=== PATIENT | female | born 1980 | race Caucasian/White ===

== ENCOUNTER 2017-07-25 03:08 | Emergency (ER) | payer MEDICAID ==
[~2017-07-25] VITALS: Ht 157.5 cm; Wt 43.1 kg
--- NOTE | 2017-07-25 03:40 | NUR ---
Dr. Mccullough at bedside for MSE.
[2017-07-25] MEDS ORDERED: ALBUTEROL SULFATE 2.5 MG/3 ML NEBU NEB ONE (03:45)
[2017-07-25] MEDS ORDERED: BENZONATATE 100 MG CAPSULE PO ONE (03:45)
[2017-07-25] MEDS ORDERED: GUAIFENESIN/CODEINE 5 ML LIQUID UDC PO ONE (03:45)
[2017-07-25] MEDS ORDERED: GUAIFENESIN/CODEINE 5 ML LIQUID UDC ONE (03:49)
[2017-07-25] MEDS ORDERED: BENZONATATE 100 MG CAPSULE ONE (03:50)
[2017-07-25] MEDS ORDERED: ALBUTEROL SULFATE 2.5 MG/3 ML NEBU ONE (03:51)
[2017-07-25] MEDS ORDERED: KETOROLAC TROMETHAMINE 30 MG INJ ONE (04:24)
--- NOTE | 2017-07-25 04:28 | NUR ---
Patient discharged to home in stable conditon. Written and verbal after care instructions given. Patient verbalizes understanding of instructions. Patient left ER and walks in steady gait. All belongings with pt. Accompnied by friend. VSS. No distress noted.
[2017-07-25 04:29] VITALS: BP 139/87
[2017-07-25] MEDS ORDERED: KETOROLAC TROMETHAMINE 30 MG INJ IM ONE (04:30)
== END 2017-07-25 04:28 | disposition home or self-care (01) ==
LOC: ER 03:13
DX: J20.9 Acute bronchitis, unspecified (principal); F17.200 Nicotine dependence, unspecified, uncomplicated
CPT/HCPCS: A4663; J1885

== ENCOUNTER 2017-09-20 00:56 | Emergency (ER) | payer MEDICAID ==
[~2017-09-20] VITALS: Ht 157.5 cm; Wt 47.6 kg
--- NOTE | 2017-09-20 02:21 | NUR ---
DR. KAYE REZA MD AT BEDSIDE FOR MSE.
[2017-09-20] MEDS ORDERED: predniSONE 20 MG TABLET PO ONE (02:30)
[2017-09-20] MEDS ORDERED: predniSONE 10 MG TABLET ONE (02:37)
[2017-09-20] MEDS ORDERED: predniSONE 50 MG TABLET ONE (02:37)
--- NOTE | 2017-09-20 02:48 | NUR ---
Patient discharged to home in stable conditon. Written and verbal after care instructions given. Patient verbalizes understanding of instructions.
[2017-09-20 02:49] VITALS: BP 148/91
== END 2017-09-20 02:50 | disposition home or self-care (01) ==
LOC: ER 01:00
DX: L25.8 Unspecified contact dermatitis due to other agents (principal)
CPT/HCPCS: A4663; J7512

== ENCOUNTER 2017-11-03 16:00 | Emergency (ER) | payer MEDICAID ==
[~2017-11-03] VITALS: Ht 157.5 cm; Wt 45.4 kg
[2017-11-03 16:46] LABS: *BILIRUBIN,URIN NEGATIVE (NEGATIVE); *BLOOD, URINE NEGATIVE (NEGATIVE); *COLOR,URINE YELLOW (YELLOW); *KETONES,URINE NEGATIVE (NEGATIVE); *PROTEIN,URINE NEGATIVE (NEGATIVE); *URINE HCG, QUAL NEGATIVE (NEGATIVE); *UROBILINOGEN,URINE 0.2 E.U./dl (NORMAL); NITRITE, URINE NEGATIVE (NEGATIVE); PH,URINE 5.5 (5.0-8.0); UGLUCOSE NEGATIVE (NEGATIVE)
[2017-11-03 16:51] LABS: *CLARITY,URINE SLIGHTLY HAZY (CLEAR)
[2017-11-03 16:52] LABS: LEUKOCYTE ESTERASE ,URINE TRACE (NEGATIVE)
[2017-11-03 16:53] LABS: MUCUS,URINE MANY /LPF (0-FEW); SQUAMOUS EPITHELIAL CELL,UR FEW /HPF (NONE SEEN)
--- NOTE | 2017-11-03 16:55 | NUR ---
pt walked out of er and said will come back.
--- NOTE | 2017-11-03 17:03 | NUR ---
Patient discharged to home in stable conditon. Written and verbal after care instructions given. Patient verbalizes understanding of instructions.
== END 2017-11-03 17:07 | disposition home or self-care (01) ==
LOC: ER 16:01
DX: N39.0 Urinary tract infection, site not specified (principal); L25.9 Unspecified contact dermatitis, unspecified cause; B95.62 Methicillin resistant Staphylococcus aureus infection as the cause of diseases classified elsewhere; F17.200 Nicotine dependence, unspecified, uncomplicated
CPT/HCPCS: 84703; A4663